=== PATIENT | male | born 1960 | race Two or more races ===

== ENCOUNTER 2020-11-01 23:50 | Inpatient (IN) | payer MEDICAID ==
[~2020-11-01] VITALS: Ht 180.3 cm; Wt 91.3 kg
--- NOTE | 2020-11-02 | NUR ---
PT STOOD AT BEDSIDE TO USE URINAL. DENIES DIZZINESS, WEAKNESS WITH STANDING. HR STABLE, NO EVIDENCE OF ORTHOSTASIS.
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
--- NOTE | 2020-11-02 00:20 | NUR ---
PT OFF LEVOPHED SINCE ARRIVAL TO ED. BP STABLE AT THIS TIME
[2020-11-02] MEDS ORDERED: NOREPINEPHRINE 8 MG in SODIUM CHLORIDE 0.9% 242 ML IV PRN (00:30)
--- NOTE | 2020-11-02 00:39 | NUR ---
UA/LABS COLLECTED AND SENT TO LAB
[2020-11-02 00:52] LABS: MICROSCOPIC INDICATED
--- NOTE | 2020-11-02 00:54 | NUR ---
ASYMPTOMATIC HYPOTENSION, LEVOPHED INITIATED. ERP AWARE. OKAY TO USE PERIPHERAL LINE AT THIS TIME. CONSENT FOR CENTRAL LINE OBTAINED.
[2020-11-02] MEDS ORDERED: OMNIPAQUE 350 MG/ML, 100ML BOTTLE ONE (01:15)
--- NOTE | 2020-11-02 01:31 | NUR ---
DR COELHO AT BEDSIDE FOR CENTRAL LINE
--- NOTE | 2020-11-02 02:11 | NUR ---
REPORT TO TOM STROUD. PT UPDATED TO POC (ADMIT) AND DEMONSTRATES UNDERSTANDING.
--- NOTE | 2020-11-02 02:18 | NUR ---
Report received from TOM Bejarano.
--- NOTE | 2020-11-02 02:34 | NUR ---
RECEIVED BS REPORT FROM LUANNE, RN TO ASSUME CARE OF PT. AT THIS TIME. LEVO CONTINUES RUNNING AT 0.1MCG/KG/MIN. VSS. PT. PROVIDED WITH JUICE PER . PILLOW PROVIDED FOR COMFORT. PT. DENIES PAIN OR NEEDS AT THIS TIME.
--- NOTE | 2020-11-02 05:07 | NUR ---
ROBERTH TO CHRISTIANE TO ALICIA PT.
[2020-11-02] MEDS ORDERED: POLYETHYLENE GLYCOL 17 GM PACKET PO PRN (05:30)
[2020-11-02] MEDS ORDERED: TEMAZEPAM 15 MG CAPSULE PO PRN (05:30)
[2020-11-02] MEDS ORDERED: MELATONIN 5 MG TABLET PO PRN (05:30)
[2020-11-02] MEDS ORDERED: DOCUSATE 100 MG CAPSULE PO PRN (05:30)
[2020-11-02] MEDS ORDERED: BISACODYL 10 MG SUPP PR PRN (05:30)
[2020-11-02] MEDS ORDERED: ONDANSETRON 2MG/ML, 2ML IVPush PRN (05:30)
[2020-11-02] MEDS ORDERED: OXYcodone IR 5MG TABLET PO PRN (05:30)
[2020-11-02] MEDS ORDERED: LORazepam 2 MG/ML, 1ML IVPush PRN (05:30)
[2020-11-02] MEDS ORDERED: hydrALAzine 20 MG/ML, 1ML IVPush PRN (05:30)
--- NOTE | 2020-11-02 05:59 | NUR ---
REPORT TO TOM CLEMONS. UNIT READY FOR PT. TRANSPORT.
[2020-11-02] MEDS ORDERED: PIPERACILLIN/TAZO 3.375 GM in DEXTROSE 5% 50 ML IVPB SCH (06:00)
[2020-11-02] MEDS ORDERED: ENOXAPARIN 40 MG/0.4 ML SQ SCH (06:00)
[2020-11-02] MEDS: SODIUM CHLORIDE 0.9% 1,000 ML IV SCH ×2 (06:40→14:00)
[2020-11-02 07:17] LABS: MEAN CORPUSCULAR HEMOGLOBIN 32.9 pg (27.5-34.5); MEAN CORPUSCULAR HGB CONC 34.3 g/dL (33.2-36.2); MEAN PLATELET VOLUME 7.2 fL (7.4-10.4); PLATELET COUNT 390 x10^3/uL (130-400); RED BLOOD COUNT 3.54 x10^6/uL (4.38-5.82); RED CELL DISTRIBUTION WIDTH 15.3 % (9.4-14.8)
[2020-11-02 07:19] LABS: MD YES
[2020-11-02 07:21] LABS: ALANINE AMINOTRANSFERASE 42 U/L (12-78); ALBUMIN 1.6 g/dL (3.4-5.0); ANION GAP 14 mmol/L (5-15); CHLORIDE 102 mmol/L (98-107); CREATININE 4.08 mg/dL (0.7-1.3)
[2020-11-02 07:23] LABS: ALKALINE PHOSPHATASE 158 U/L (45-117); BILIRUBIN,TOTAL 2.2 mg/dL (0.2-1.0); TOTAL PROTEIN 5.5 g/dL (6.4-8.2)
[2020-11-02 07:35] LABS: INTERNATIONAL NORMALIZED RATIO 1.42 (0.93-1.1); PROTHROMBIN TIME 15.1 Seconds (9.6-11.5)
[2020-11-02 07:45] LABS: BAND#(MANUAL) 0.83 x10^3/uL; BANDS%(MANUAL) 3 % (0-7); LYMPH#(MANUAL) 0.28 x10^3/uL (1-3.4); LYMPHS% (MANUAL) 1 % (22-44); MONOS#(MANUAL) 0.56 x10^3/uL (0.3-2.7); MONOS% (MANUAL) 2 % (2-9); SEG#(MANUAL) 26.13 x10^3/uL (1.8-6.8); SEGS% (MANUAL) 94 % (42-75)
[2020-11-02 07:46] LABS: <PLATELET ESTIMATE> ADEQUATE; <PLT MORPHOLOGY> NORMAL PLT MORPH; ANISOCYTOSIS 1+; ECHINOCYTES 1+; PMNS WITH VACUOLES 1+; POLYCHROMASIA 1+; TOXIC GRAN 1+
[2020-11-02 08:23] LABS: CREATININE 4.08 mg/dL (0.7-1.3)
[2020-11-02] MEDS: PIPERACILLIN/TAZO 3.375 GM in DEXTROSE 5% 50 ML IVPB SCH ×3 (08:42→22:23)
[2020-11-02] MEDS ORDERED: FAMOTIDINE 20 MG TABLET PO SCH (09:00)
[2020-11-02 13:02] VITALS: BP 103/56
[2020-11-02 19:52] VITALS: BP 100/62
[2020-11-02] MEDS: ACETAMINOPHEN 325 MG TABLET PO PRN (22:50)
[2020-11-03] MEDS: SODIUM CHLORIDE 0.9% 1,000 ML IV SCH ×3 (01:07→22:30)
[2020-11-03 01:22] VITALS: BP 99/59
[2020-11-03 05:27] LABS: CHLORIDE 106 mmol/L (98-107)
[2020-11-03 05:28] LABS: MEAN CORPUSCULAR HEMOGLOBIN 32.8 pg (27.5-34.5); MEAN CORPUSCULAR HGB CONC 34.5 g/dL (33.2-36.2); MEAN PLATELET VOLUME 7.2 fL (7.4-10.4); PLATELET COUNT 351 x10^3/uL (130-400); RED BLOOD COUNT 3.49 x10^6/uL (4.38-5.82); RED CELL DISTRIBUTION WIDTH 15.7 % (9.4-14.8)
[2020-11-03] MEDS: ENOXAPARIN 30 MG/0.3 ML SQ SCH (05:32)
[2020-11-03] MEDS: PIPERACILLIN/TAZO 3.375 GM in DEXTROSE 5% 50 ML IVPB SCH ×3 (05:32→22:47)
[2020-11-03 06:04] LABS: ALANINE AMINOTRANSFERASE 50 U/L (12-78); ALBUMIN 1.4 g/dL (3.4-5.0); ALKALINE PHOSPHATASE 187 U/L (45-117); ANION GAP 14 mmol/L (5-15); BILIRUBIN,TOTAL 2.9 mg/dL (0.2-1.0); CALCIUM 6.6 mg/dL (8.5-10.1); TOTAL PROTEIN 5.3 g/dL (6.4-8.2)
[2020-11-03 06:14] LABS: MD YES
[2020-11-03 06:16] LABS: ANISOCYTOSIS 1+; BAND#(MANUAL) 2.13 x10^3/uL; BANDS%(MANUAL) 11 % (0-7); EOS#(MANUAL) 0.19 x10^3/uL (0.0-0.4); EOS% (MANUAL) 1 % (1-7); LYMPH#(MANUAL) 0.78 x10^3/uL (1-3.4); LYMPHS% (MANUAL) 4 % (22-44); MONOS#(MANUAL) 0.39 x10^3/uL (0.3-2.7); MONOS% (MANUAL) 2 % (2-9); MYELOCYTES# (MANUAL) 0.19 x10^3/uL (0-0); MYELOCYTES% (MANUAL) 1 % (0-0); SEG#(MANUAL) 15.71 x10^3/uL (1.8-6.8); SEGS% (MANUAL) 81 % (42-75)
[2020-11-03 06:17] LABS: <PLATELET ESTIMATE> ADEQUATE; <PLT MORPHOLOGY> NORMAL PLT MORPH; PMNS WITH VACUOLES 1+
[2020-11-03 06:24] VITALS: BP 104/62
[2020-11-03] MEDS ORDERED: FAMOTIDINE 20 MG TABLET PO SCH (09:00)
[2020-11-03] MEDS ORDERED: GADOTERATE 10 MMOL/20ML SYR ONE (13:08)
[2020-11-03 14:15] VITALS: BP 103/66
[2020-11-03] MEDS: ACETAMINOPHEN 325 MG TABLET PO PRN (17:16)
[2020-11-03 20:25] VITALS: BP 120/73
[2020-11-04 02:42] VITALS: BP 117/72
[2020-11-04] MEDS: PIPERACILLIN/TAZO 3.375 GM in DEXTROSE 5% 50 ML IVPB SCH (05:59)
[2020-11-04] MEDS: ENOXAPARIN 30 MG/0.3 ML SQ SCH (05:59)
[2020-11-04] MEDS: SODIUM CHLORIDE 0.9% 1,000 ML IV SCH ×2 (06:00→15:23)
[2020-11-04 07:22] VITALS: BP 109/70
[2020-11-04] MEDS: PIPERACILLIN/TAZO 2.25 GM in DEXTROSE 5% 50 ML IVPB SCH ×2 (12:18→17:36)
[2020-11-04 14:06] VITALS: BP 116/74
[2020-11-04] MEDS: POTASSIUM CHLORIDE 20 MEQ TAB.ER.PRT PO SCH (17:37)
[2020-11-04 19:48] VITALS: BP 127/80
[2020-11-05] MEDS: PIPERACILLIN/TAZO 2.25 GM in DEXTROSE 5% 50 ML IVPB SCH ×2 (00:03→06:16)
[2020-11-05 00:35] VITALS: BP 120/78
[2020-11-05 05:14] LABS: MEAN CORPUSCULAR HEMOGLOBIN 32.8 pg (27.5-34.5); MEAN CORPUSCULAR HGB CONC 35.1 g/dL (33.2-36.2); MEAN PLATELET VOLUME 7.1 fL (7.4-10.4); PLATELET COUNT 277 x10^3/uL (130-400); RED BLOOD COUNT 3.63 x10^6/uL (4.38-5.82); RED CELL DISTRIBUTION WIDTH 15.9 % (9.4-14.8)
[2020-11-05 05:24] LABS: ANION GAP 14 mmol/L (5-15); CALCIUM 6.6 mg/dL (8.5-10.1); CHLORIDE 109 mmol/L (98-107); CREATININE 3.52 mg/dL (0.7-1.3)
[2020-11-05 06:01] LABS: MD YES
[2020-11-05 06:02] LABS: BAND#(MANUAL) 0.57 x10^3/uL; BANDS%(MANUAL) 4 % (0-7); METAMYELOCYTES# (MANUAL) 0.29 x10^3/uL (0-0); METAMYELOCYTES% (MANUAL) 2 % (0-1)
[2020-11-05 06:03] LABS: <PLATELET ESTIMATE> ADEQUATE; <PLT MORPHOLOGY> NORMAL PLT MORPH; ANISOCYTOSIS 1+; LYMPH#(MANUAL) 0.86 x10^3/uL (1-3.4); LYMPHS% (MANUAL) 6 % (22-44); MONOS#(MANUAL) 0.86 x10^3/uL (0.3-2.7); MONOS% (MANUAL) 6 % (2-9); SEG#(MANUAL) 11.73 x10^3/uL (1.8-6.8); SEGS% (MANUAL) 82 % (42-75)
[2020-11-05] MEDS: ENOXAPARIN 30 MG/0.3 ML SQ SCH (06:15)
[2020-11-05 07:05] VITALS: BP 112/67
[2020-11-05] MEDS: POTASSIUM CHLORIDE 20 MEQ TAB.ER.PRT PO SCH (08:43)
[2020-11-05] MEDS: HEPARIN 5,000 UNITS/ML, 1ML SQ SCH ×2 (08:43→16:20)
[2020-11-05] MEDS: SODIUM CHLORIDE 0.9% 1,000 ML IV SCH ×3 (08:43→20:17)
[2020-11-05] MEDS: CEFTRIAXONE 1,000 MG in DEXTROSE 5% 50 ML IVPB SCH (08:43)
[2020-11-05 09:17] LABS: HCT (SEDRATE) 35.5 % (39.2-51.8)
[2020-11-05] MEDS ORDERED: DOCU-131 PO (12:30)
[2020-11-05] MEDS ORDERED: ceftin PO (12:30)
[2020-11-05 14:24] VITALS: BP 114/62
[2020-11-05 19:28] VITALS: BP 133/80
[2020-11-05] MEDS: ACETAMINOPHEN 325 MG TABLET PO PRN (20:17)
[2020-11-06] MEDS: HEPARIN 5,000 UNITS/ML, 1ML SQ SCH ×3 (00:46→16:42)
[2020-11-06 00:58] VITALS: BP 108/62
[2020-11-06 04:50] LABS: MEAN CORPUSCULAR HEMOGLOBIN 32.6 pg (27.5-34.5); MEAN CORPUSCULAR HGB CONC 35.1 g/dL (33.2-36.2); MEAN PLATELET VOLUME 7.3 fL (7.4-10.4); PLATELET COUNT 254 x10^3/uL (130-400); RED BLOOD COUNT 3.52 x10^6/uL (4.38-5.82)
[2020-11-06 04:56] LABS: ALBUMIN 1.3 g/dL (3.4-5.0); ANION GAP 11 mmol/L (5-15); CALCIUM 7.1 mg/dL (8.5-10.1); CHLORIDE 112 mmol/L (98-107)
[2020-11-06 04:57] LABS: CREATININE 3.02 mg/dL (0.7-1.3)
[2020-11-06] MEDS: SODIUM CHLORIDE 0.9% 1,000 ML IV SCH ×3 (05:45→22:51)
[2020-11-06 05:55] LABS: MD YES
[2020-11-06 05:58] LABS: <PLATELET ESTIMATE> ADEQUATE; <PLT MORPHOLOGY> NORMAL PLT MORPH; ANISOCYTOSIS 1+; BAND#(MANUAL) 0.24 x10^3/uL; BANDS%(MANUAL) 2 % (0-7); EOS#(MANUAL) 0.24 x10^3/uL (0.0-0.4); EOS% (MANUAL) 2 % (1-7); LYMPH#(MANUAL) 0.95 x10^3/uL (1-3.4); LYMPHS% (MANUAL) 8 % (22-44); METAMYELOCYTES# (MANUAL) 0.12 x10^3/uL (0-0); METAMYELOCYTES% (MANUAL) 1 % (0-1); MONOS#(MANUAL) 0.71 x10^3/uL (0.3-2.7); MONOS% (MANUAL) 6 % (2-9); MYELOCYTES# (MANUAL) 0.12 x10^3/uL (0-0); MYELOCYTES% (MANUAL) 1 % (0-0); SEG#(MANUAL) 9.52 x10^3/uL (1.8-6.8); SEGS% (MANUAL) 80 % (42-75)
[2020-11-06] MEDS: CEFTRIAXONE 1,000 MG in DEXTROSE 5% 50 ML IVPB SCH (08:17)
[2020-11-06 08:28] LABS: FREE T4 (FREE THYROXINE) 0.88 ng/dL (0.76-1.46)
[2020-11-06 08:48] VITALS: BP 118/96
[2020-11-06 10:19] VITALS: BP 122/71
[2020-11-06 12:45] VITALS: BP 133/84
[2020-11-06] MEDS ORDERED: SODIUM CHLORIDE 0.9%, 500ML IVBOLUS ONE (19:30)
[2020-11-06 19:36] VITALS: BP 126/68
[2020-11-07] MEDS: HEPARIN 5,000 UNITS/ML, 1ML SQ SCH ×2 (00:51→09:34)
[2020-11-07 01:03] VITALS: BP 135/77
[2020-11-07 06:05] LABS: ALBUMIN 1.4 g/dL (3.4-5.0); ANION GAP 11 mmol/L (5-15); CHLORIDE 111 mmol/L (98-107); CREATININE 2.41 mg/dL (0.7-1.3)
[2020-11-07 06:15] LABS: CALCIUM 7.4 mg/dL (8.5-10.1)
[2020-11-07 06:26] LABS: MEAN CORPUSCULAR HEMOGLOBIN 32.4 pg (27.5-34.5); MEAN CORPUSCULAR HGB CONC 34.8 g/dL (33.2-36.2); MEAN PLATELET VOLUME 7.4 fL (7.4-10.4); PLATELET COUNT 260 x10^3/uL (130-400); RED BLOOD COUNT 3.66 x10^6/uL (4.38-5.82); RED CELL DISTRIBUTION WIDTH 16.1 % (9.4-14.8)
[2020-11-07 06:54] LABS: MD YES
[2020-11-07 06:56] LABS: <PLATELET ESTIMATE> ADEQUATE; <PLT MORPHOLOGY> NORMAL PLT MORPH; ANISOCYTOSIS 1+; LYMPH#(MANUAL) 0.71 x10^3/uL (1-3.4); LYMPHS% (MANUAL) 6 % (22-44); METAMYELOCYTES# (MANUAL) 0.12 x10^3/uL (0-0); METAMYELOCYTES% (MANUAL) 1 % (0-1); MONOS#(MANUAL) 0.48 x10^3/uL (0.3-2.7); MONOS% (MANUAL) 4 % (2-9); SEG#(MANUAL) 10.59 x10^3/uL (1.8-6.8); SEGS% (MANUAL) 89 % (42-75)
[2020-11-07 07:37] VITALS: BP 128/80
[2020-11-07] MEDS: SODIUM CHLORIDE 0.9% 1,000 ML IV SCH (08:00)
[2020-11-07] MEDS ORDERED: POTASSIUM CHLORIDE 40 MEQ in SODIUM CHLORIDE 0.9% 500 ML IV ONE (08:00)
[2020-11-07] MEDS: CEFTRIAXONE 1,000 MG in DEXTROSE 5% 50 ML IVPB SCH (08:00)
[2020-11-07] MEDS ORDERED: MAGNESIUM SULFATE 3 GM in SODIUM CHLORIDE 0.9% 100 ML IV ONE (08:00)
[2020-11-07] MEDS ORDERED: POTASSIUM CHLORIDE 20 MEQ TAB.ER.PRT PO ONE (13:00)
[2020-11-07 13:14] LABS: ANA SCREEN NEGATIVE (Negative)
[2020-11-07] MEDS ORDERED: ceftin PO (21:50)
[2020-11-07] MEDS ORDERED: VITA1TAB38 PO (21:50)
== END 2020-11-07 11:08 | disposition left against medical advice (07) | DRG 720 ==
LOC: ED 11-02 00:39 → EDIP 11-02 02:19 → CCU 11-02 06:11 → 4NW 11-02 10:15 → 4WST 11-02 12:28 → 3N 11-03 17:58
PROVIDERS: ADMIT Internal Medicine; ATTEND Internal Medicine
PROC: 02HV33Z Insertion of Infusion Device into Superior Vena Cava, Percutaneous Approach (ICD-10-PCS; principal; 2020-11-02)
PROC: B548ZZA Ultrasonography of Superior Vena Cava, Guidance (ICD-10-PCS; 2020-11-02)
DX: A41.51 Sepsis due to Escherichia coli [E. coli] (principal); N17.0 Acute kidney failure with tubular necrosis; R65.21 Severe sepsis with septic shock; E87.1 Hypo-osmolality and hyponatremia; Z20.822 Contact with and (suspected) exposure to COVID-19; E88.09 Other disorders of plasma-protein metabolism, not elsewhere classified; B96.89 Other specified bacterial agents as the cause of diseases classified elsewhere; D63.8 Anemia in other chronic diseases classified elsewhere; F10.10 Alcohol abuse, uncomplicated; F17.200 Nicotine dependence, unspecified, uncomplicated; J98.11 Atelectasis; K57.30 Diverticulosis of large intestine without perforation or abscess without bleeding; M21.331 Wrist drop, right wrist; M21.332 Wrist drop, left wrist; N39.0 Urinary tract infection, site not specified; E86.0 Dehydration; Z53.29 Procedure and treatment not carried out because of patient's decision for other reasons; Z79.899 Other long term (current) drug therapy; Y90.9 Presence of alcohol in blood, level not specified
CPT/HCPCS: 36415; 36556; 70491; 70551; 70552; 71045; 72156; 76770; 80048; 80053; 80069; 81001; 82306; 82565; 82607; 82962; 83520; 83655; 83735; 84100; 84252; 84425; 84439; 84443; 84481; 84591; 85025; 85610; 85651; 85730; 86038; 86140; 86225; 86256; 87040; 87077; 87081; 87086; 87186; 93005; 93306; 99291; G0378; J0696; J1644; J1650; J2543; Q9967; A9575; J7030; J7040; J7050